=== PATIENT | female | born 1965 | race Hispanic/Latino ===

== ENCOUNTER → 2022-04-20 | Outpatient (CLI) | payer BC | END | disposition home or self-care (01) | LOC: RAH 09:35 | PROVIDERS: ATTEND Internal Medicine | DX: Z12.31 Encounter for screening mammogram for malignant neoplasm of breast (principal) | CPT/HCPCS: 77067 ==

== ENCOUNTER → 2023-11-01 | Outpatient (CLI) | payer BC | END | disposition home or self-care (01) | LOC: RAH 08:06 | PROVIDERS: ATTEND Nurse Practitioner Family | DX: Z12.31 Encounter for screening mammogram for malignant neoplasm of breast (principal); R92.333 Mammographic heterogeneous density, bilateral breasts | CPT/HCPCS: 77067 ==